=== PATIENT | female | born 1965 ===

== ENCOUNTER 2016-11-09 00:31 | Emergency (ER) | payer SELFPAY ==
[2016-11-09 01:37] LABS: Basophils % (Auto) 1.4 % (0.0-1.8); Eosinophils % (Auto) 3.8 % (0.0-4.3); Hematocrit 36.5 % (30.3-42.9); Hemoglobin 12.2 gm/dl (10.1-14.3); Mean Corpuscular HGB Conc 33 % (30-34); Mean Corpuscular Hemoglobin 28 pg (28-32); Mean Corpuscular Volume 84 fl (79-97); Platelet Count 193 K/mm3 (140-440); Red Blood Count 4.34 M/mm3 (3.65-5.03); Red Cell Distribution Width 13.7 % (13.2-15.2); White Blood Count 7.7 K/mm3 (4.5-11.0)
[2016-11-09 01:55] LABS: Alanine Aminotransferase 9 units/L (7-56); Albumin 4.1 g/dL (3.9-5); Albumin/Globulin Ratio 1.4 %; Alkaline Phosphatase 50 units/L (35-129); Anion Gap 12 mmol/L; BUN/Creatinine Ratio 24.44; Bilirubin,Total < 0.20 mg/dL (0.1-1.2); Blood Urea Nitrogen 22 mg/dL (7-17); Calcium 8.9 mg/dL (8.4-10.2); Carbon Dioxide 28 mmol/L (22-30); Chloride 101.5 mmol/L (98-107); Glucose 101 mg/dL (65-100); Lipase 27 units/L (13-60); Potassium 4.5 mmol/L (3.6-5.0); Sodium 137 mmol/L (137-145)
[2016-11-09 02:12] LABS: Bilirubin,Urine NEG (Negative); Blood,Urine NEG (Negative); Ketones,Urine NEG (Negative); Leukocyte Esterase,Urine NEG (Negative); Mucus,Urine FEW /HPF; Nitrite,Urine NEG (Negative); Protein,Urine <15 mg/dL mg/dL (Negative); Urobilinogen,Urine < 2.0 mg/dL (<2.0)
[2016-11-09 03:48] VITALS: BP 133/70
[2016-11-09] MEDS ORDERED: TYLENOL PO ONE (03:48)
--- NOTE | 2016-11-10 00:37 | ED Elopement Review ---
ED Pt Elopement review - Results review Lab results: Laboratory Tests 11/09/16 11/09/16 11/09/16 01:21 01:21 01:21 WBC 7.7 RBC 4.34 Hgb 12.2 Hct 36.5 MCV 84 MCH 28 MCHC 33 RDW 13.7 Plt Count 193 Lymph % (Auto) 35.2 H [place] % (Auto) 8.7 H Eos % (Auto) 3.8 Baso % (Auto) 1.4 Lymph # 2.7 [place] # 0.7 Eos # 0.3 Baso # 0.1 Seg Neutrophils % 50.9 Seg Neutrophils # 3.9 Sodium 137 Potassium 4.5 Chloride 101.5 Carbon Dioxide 28 Anion Gap 12 BUN 22 H Creatinine 0.9 Estimated GFR > 60 BUN/Creatinine Ratio 24.44 Glucose 101 H Calcium 8.9 Total Bilirubin < 0.20 AST 9 ALT 9 Alkaline Phosphatase 50 Total Protein 7.0 Albumin 4.1 Albumin/Globulin Ratio 1.4 Lipase 27 HCG, Qual Negative Urine Color Urine Turbidity Urine pH Ur Specific Secretary Urine Protein Urine Glucose (UA) Urine Ketones Urine Blood Urine Nitrite Urine Bilirubin Urine Urobilinogen Ur Leukocyte Esterase Urine WBC (Auto) Urine RBC (Auto) U Epithel Cells (Auto) Urine Mucus 11/09/16 Unknown WBC RBC Hgb Hct MCV MCH MCHC RDW Plt Count Lymph % (Auto) [place] % (Auto) Eos % (Auto) Baso % (Auto) Lymph # [place] # Eos # Baso # Seg Neutrophils % Seg Neutrophils # Sodium Potassium Chloride Carbon Dioxide Anion Gap BUN Creatinine Estimated GFR BUN/Creatinine Ratio Glucose Calcium Total Bilirubin AST ALT Alkaline Phosphatase Total Protein Albumin Albumin/Globulin Ratio Lipase HCG, Qual Urine Color Yellow Urine Turbidity Clear Urine pH 6.0 Ur Specific Secretary 1.021 Urine Protein <15 mg/dl Urine Glucose (UA) Neg Urine Ketones Neg Urine Blood Neg Urine Nitrite Neg Urine Bilirubin Neg Urine Urobilinogen < 2.0 Ur Leukocyte Esterase Neg Urine WBC (Auto) 1.0 Urine RBC (Auto) 1.0 U Epithel Cells (Auto) 1.0 Urine Mucus Few - Call Back decision Pt Call Back Decision: Pt to F/U with PMD
== END 2016-11-09 03:52 | disposition left against medical advice (07) ==
LOC: ED 00:31
DX: R10.9 Unspecified abdominal pain (principal); Z53.21 Procedure and treatment not carried out due to patient leaving prior to being seen by health care provider
CPT/HCPCS: 36415; 80053; 81001; 83690; 84703; 85025